=== PATIENT | male | born 1980 | race Caucasian/White ===

== ENCOUNTER 2018-04-12 07:44 | Emergency (ER) | payer BC ==
[2018-04-12] MEDS ORDERED: NS 0.9% 1000 ML* 1,000 ML IV ONE ×2 (07:54→09:01)
[2018-04-12] MEDS ORDERED: Ondansetron INJ* 2 MG/ML VIAL IV ONE (07:54)
[2018-04-12] MEDS ORDERED: Ketorolac INJ* 30 MG/ML 1 ML VIAL IV PUSH ONE (07:55)
--- NOTE | 2018-04-12 08:03 | ED ---
Abdominal Pain/Male - HPI Summary HPI Summary: This patient is a 37 year old M presenting to [facility] accompanied by his with a chief complaint of persistent vomiting on 04-08-18. The patient rates the pain 5/10 in severity. Symptoms alleviated by Zofran given by CC. Patient reports diarrhea, intermittent periumbilical pain, nausea, and loss of appetite. Patient denies blood in stool, mucus in stool, and recent camping. Pt recently had a colonoscopy and upper endoscopy which showed polyps. Pt was seen at [facility] a few days ago but has not improved since then. - History of Current Complaint Chief Complaint: EDAbdPain Stated Complaint: VOMITING Time Seen by Provider: 04/12/18 07:52 Hx Obtained From: Patient Onset/Duration: Lasting Days, Still Present Timing: Constant Severity Initially: Mild Severity Currently: Mild Pain Intensity: 3 Pain Scale Used: 0-10 Numeric Location: Umbilical Radiates: No Alleviating Factor(s): Other: - zofran Associated Signs And Symptoms: Positive: Decreased Appetite, Nausea, Vomiting, Diarrhea. Negative: Blood in Stool - Allergies/Home Medications Allergies/Adverse Reactions: Allergies Allergy/AdvReac Type Severity Reaction Status Date / Time No Known Allergies Allergy Verified 04/12/18 07:50 Home Medications: Home Medications Pantoprazole TAB (NF) [Protonix TAB (NF)] 40 mg PO DAILY 04/12/18 [History Confirmed 04/12/18] PMH/Surg Hx/FS Hx/Imm Hx Endocrine/Hematology History: Denies: Hx Systemic Lupus Erythematosus, Hx Sickle Cell Disease Cardiovascular History: Denies: Hx Angioplasty, Hx Auto Implanted Cardiovert Defib, Hx Cardiomegaly, Hx Congenital Heart Disease, Hx Coronary Artery Disease Respiratory History: Denies: Hx Chronic Obstructive Pulmonary Disease (COPD), Hx Cystic Fibrosis, Hx Pulmonary Edema, Hx Pulmonary Embolism GI History: Reports: Hx Gastroesophageal Reflux Disease Infectious Disease History: No Infectious Disease History: Denies: Traveled Outside the [place] in Last 30 Days - Family History Known Family History: Negative: Respiratory Disease, Seizure Disorder, Blood Disorder - Social History Lives: With Family Alcohol Use: Occasionally Hx Substance Use: No Substance Use Type: Reports: None Hx Tobacco Use: No Smoking Status (MU): Never Smoked Tobacco Review of Systems Negative: Fever Positive: Abdominal Pain, Vomiting, Diarrhea, Nausea, Other - loss of appetite All Other Systems Reviewed And Are Negative: Yes Physical Exam - Summary Physical Exam Summary: Appearance: Well appearing, no pain distress Skin: warm, dry, reflects adequate perfusion Head/face: normal Eyes: EOMI, PENNY ENT: normal Neck: supple, non-tender Respiratory: CTA, breath sounds present Cardiovascular: RRR, pulses symmetrical Abdomen: non-tender, soft, RLQ is non tender, there is no distension Bowel Sounds: increased bowel sound with high pitch Musculoskeletal: normal, strength/ROM intact Neuro: normal, sensory motor intact, A&Ox3 Triage Information Reviewed: Yes Vital Signs On Initial Exam: Initial Vitals Temp Pulse Resp BP Pulse Ox 97.0 F 80 16 150/90 98 04/12/18 07:47 04/12/18 07:47 04/12/18 07:47 04/12/18 07:47 04/12/18 07:47 Vital Signs Reviewed: Yes Diagnostics - Vital Signs Vital Signs Temp Pulse Resp BP Pulse Ox 04/12/18 07:47 97.0 F 80 16 150/90 98 - Laboratory Result Diagrams: 04/12/18 08:46 04/12/18 08:46 Lab Statement: Any lab studies that have been ordered have been reviewed, and results considered in the medical decision making process. Re-Evaluation - Re-Evaluation First Eval Change: Improved Abdominal Pain Fem Course/Dx - Course Course Of Treatment: Patient with largely diarrheal illness. No significant tenderness on exam. CRP is elevated and potassium is low. This was replaced along with magnesium. He received 2 L of IV fluids and is feeling much better. He did provide a stool sample which was sent for testing, culture etc. Likely viral in nature. No blood or mucus in the stools. No known sick contacts or travel/camping. - Diagnoses Differential Diagnosis/HQI/PQRI: Appendicitis, Bowel Obstruction, Gall Bladder Disease, Pancreatitis, Other - Gastroenteritis Provider Diagnoses: Gastroenteritis, Hypokalemia Discharge - Sign-Out/Discharge Documenting (check all that apply): Patient Departure - Discharge Plan Condition: Improved Disposition: HOME Prescriptions: Diphenoxylat/Atrop 2.5-0.025M* [Lomotil TAB*] 1 tab PO QID PRN #15 tab MDD 4 PRN Reason: Diarrhea Hyoscyamine Sulfate [Levsin/Sl] 0.125 mg SL QID PRN #30 sub PRN Reason: cramping Patient Education Materials: Gastroenteritis (ED) Forms: *Work Release Referrals: Jo-Ann Nieto, HEMATOLOGY SUPERVISOR [Primary Care Provider] - Additional Instructions: Drink plenty of fluids. Gatorade G2 or propel water may help best. Return with fever, increased abdominal pain, worse, new symptoms or other concerns as discussed. This is contagious as long as you have loose stools. - Billing Disposition and Condition Condition: IMPROVED Disposition: Home - Attestation Statements Document Initiated by Edel: Yes Documenting Scribe: Saji Farrell Provider For Whom Edel is Documenting (Include Credential): Graeme Thomas MD Scribe Attestation: Saji Pepe , scribed for Graeme Thomas MD on 04/12/18 at 1037. Scribe Documentation Reviewed: Yes Provider Attestation: The documentation as recorded by the Saji angel accurately reflects the service I personally performed and the decisions made by me, Graeme Thomas MD
[2018-04-12 09:07] LABS: ABS Basophils 0 10^3/ul (0-0.2); ABS Eosinophils 0.2 10^3/ul (0-0.6); ABS Lymphocytes 1.3 10^3/ul (1.0-4.8); ABS Monocytes 1.6 10^3/ul (0-0.8); ABS Neutrophils 4.2 10^3/ul (1.5-7.7); ABS Nucleated RBC 0 10^3/ul; Eosinophil % 2.2 % (0-6); Hematocrit 46 % (42-52); Hemoglobin 16.5 g/dl (14.0-18.0); Lymphocyte % 17.4 % (25-47); Mean Corpuscular HGB Conc 36 g/dl (31-36); Mean Corpuscular Hemoglobin 32 pg (27-31); Mean Corpuscular Volume 87 fL (80-94); Mean Platelet Volume 6.6 um3 (7.4-10.4); Nucleated Red Blood Cells % 0; Platelet Count 202 10^3/ul (150-450); Red Blood Count 5.23 10^6/ul (4.00-5.40); Red Cell Distribution Width 14 % (10.5-15); White Blood Count 7.3 10^3/ul (3.5-10.8)
[2018-04-12 09:18] LABS: EGFR Non-African American 97.4 (>60)
[2018-04-12 09:33] LABS: Urine Appearance Clear; Urine Blood Negative (Negative); Urine Color Amber; Urine Ketones 1+ (Negative); Urine Protein 1+(30 mg/dL) (Negative); Urine Red Blood Cell Absent (Absent); Urine Specific Gravity 1.026 (1.010-1.030); Urine Urobilinogen Negative (Negative); Urine White Blood Cell Absent (Absent)
[2018-04-12 10:14] VITALS: BP 136/82
[2018-04-12] MEDS ORDERED: Potassium Chlor TAB* 20 MEQ TAB.ER PO ONE (10:27)
[2018-04-12] MEDS ORDERED: Magnesium Oxide TAB* 400 MG PO ONE (10:27)
== END 2018-04-12 10:38 | disposition home or self-care (01) ==
LOC: ED 07:44
DX: K52.9 Noninfective gastroenteritis and colitis, unspecified (principal); E87.6 Hypokalemia; R11.2 Nausea with vomiting, unspecified; R19.7 Diarrhea, unspecified; R10.9 Unspecified abdominal pain
CPT/HCPCS: 36415; 80053; 81003; 81015; 83605; 83630; 83690; 85025; 86140; 87045; 87046; 87328; 87329; 87493; 87899; 96374; 96375; 99283; A9270-GY; J1885; J2405

== ENCOUNTER 2018-04-13 13:55 | Observation (INO) | payer BC ==
[2018-04-13] MEDS ORDERED: NS 0.9% 1000 ML* 1,000 ML IV ONE ×2 (14:04→14:05)
[2018-04-13 14:50] LABS: ABS Basophils 0 10^3/ul (0-0.2); ABS Eosinophils 0.2 10^3/ul (0-0.6); ABS Lymphocytes 1.8 10^3/ul (1.0-4.8); ABS Monocytes 1.6 10^3/ul (0-0.8); ABS Neutrophils 7.1 10^3/ul (1.5-7.7); ABS Nucleated RBC 0 10^3/ul; Eosinophil % 1.8 % (0-6); Hematocrit 50 % (42-52); INR 0.92 (0.77-1.02); Lymphocyte % 16.9 % (25-47); Mean Corpuscular HGB Conc 36 g/dl (31-36); Mean Corpuscular Hemoglobin 31 pg (27-31); Mean Corpuscular Volume 87 fL (80-94); Nucleated Red Blood Cells % 0.1; Platelet Count 233 10^3/ul (150-450); Red Blood Count 5.74 10^6/ul (4.00-5.40); Red Cell Distribution Width 14 % (10.5-15); White Blood Count 10.7 10^3/ul (3.5-10.8)
[2018-04-13 15:02] LABS: EGFR Non-African American 84.1 (>60)
[2018-04-13] MEDS ORDERED: Magnesium Sulfate 1 GM IV* 1 GM/100 ML BAG IV ONE (15:59)
[2018-04-13] MEDS: KCL 20 MEQ/100 ML IVPREMIX* 20 MEQ/100 ML BAG IV SCH ×2 (16:01→18:45)
[2018-04-13] MEDS ORDERED: Acetaminophen TAB* 325 MG PO PRN (16:45)
[2018-04-13] MEDS ORDERED: Ondansetron INJ* 2 MG/ML VIAL IV PRN (16:46)
[2018-04-13] MEDS ORDERED: Loperamide CAP* 2 MG PO ONE (16:56)
[2018-04-13] MEDS ORDERED: Loperamide CAP* 2 MG PO PRN (16:56)
--- NOTE | 2018-04-13 17:23 | ED ---
Abdominal Pain/Male - HPI Summary HPI Summary: Patient is a 37 y/o M w/ c/o N/V/D, abdominal pain. He was seen at [facility] [place]. A stool sample and urine sample were taken, patient states he was told that he had a stomach flu and was discharged to home. Patient still reports the presence of Sx and states he feels, "awful". He denies chest pain, fevers, and SOB. Patient reports blood in stool, light-headedness and tiredness while standing. On triage, pain is rated 2/10, nothing is noted to aggravate/ alleviate Sx. Home medications and allergies are reviewed. 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 Before entering room to talk to patient, labs returned showing patient is positive for cryptosporidium. - History of Current Complaint Chief Complaint: EDGIBleed Stated Complaint: BLOOD IN STOOL Time Seen by Provider: 04/13/18 14:05 Hx Obtained From: Patient Onset/Duration: Still Present Timing: Constant Severity Currently: Mild - 2/10 Pain Intensity: 2 Pain Scale Used: 0-10 Numeric - 2/10 Aggravating Factor(s): Nothing Alleviating Factor(s): Nothing Associated Signs And Symptoms: Positive: Blood in Stool, Nausea, Vomiting, Diarrhea, Other - POSITIVE: tiredness and lightheaded while standing. Negative : Fever, Chest Pain - Allergies/Home Medications Allergies/Adverse Reactions: Allergies Allergy/AdvReac Type Severity Reaction Status Date / Time No Known Allergies Allergy Verified 04/13/18 15:38 PMH/Surg Hx/FS Hx/Imm Hx Endocrine/Hematology History: Denies: Hx Systemic Lupus Erythematosus, Hx Sickle Cell Disease Cardiovascular History: Denies: Hx Angioplasty, Hx Auto Implanted Cardiovert Defib, Hx Cardiomegaly, Hx Congenital Heart Disease, Hx Coronary Artery Disease Respiratory History: Denies: Hx Chronic Obstructive Pulmonary Disease (COPD), Hx Cystic Fibrosis, Hx Pulmonary Edema, Hx Pulmonary Embolism GI History: Reports: Hx Gastroesophageal Reflux Disease - Immunization History Immunizations Up to Date: Yes Infectious Disease History: No Infectious Disease History: Denies: Traveled Outside the [place] in Last 30 Days - Family History Known Family History: Negative: Respiratory Disease, Seizure Disorder, Blood Disorder - Social History Alcohol Use: Occasionally Hx Substance Use: No Substance Use Type: Reports: Marijuana Hx Tobacco Use: No Smoking Status (MU): Never Smoked Tobacco Review of Systems Positive: Fatigue - tiredness while standing . Negative: Fever Negative: Chest Pain Negative: Shortness Of Breath Positive: Abdominal Pain, Vomiting, Diarrhea, Nausea Positive: other - POSITIVE: blood in stool Neurological: Other - lightheadedness while standing All Other Systems Reviewed And Are Negative: Yes Physical Exam - Summary Physical Exam Summary: Appearance: Well appearing, no pain distress Skin: warm, dry, reflects adequate perfusion Head/face: normal Eyes: EOMI, PENNY ENT: mucous membranes are tacky Neck: supple, non-tender Respiratory: CTA, breath sounds present Cardiovascular: RRR, pulses symmetrical Abdomen: non-tender, soft Bowel Sounds: decreased but present Musculoskeletal: normal, strength/ROM intact Neuro: normal, sensory motor intact, A&Ox3 Triage Information Reviewed: Yes Vital Signs On Initial Exam: Initial Vitals Temp Pulse Resp BP Pulse Ox 96.8 F 96 16 140/90 97 04/13/18 13:56 04/13/18 13:56 04/13/18 13:56 04/13/18 13:56 04/13/18 13:56 Vital Signs Reviewed: Yes Diagnostics - Vital Signs Vital Signs Temp Pulse Resp BP Pulse Ox 04/13/18 16:48 83 10 143/80 99 04/13/18 16:19 84 19 142/95 99 04/13/18 15:49 80 21 138/93 98 04/13/18 15:19 91 12 151/99 99 04/13/18 13:56 96.8 F 96 16 140/90 97 - Laboratory Lab Results: Lab Results 04/13/18 04/13/18 04/13/18 Range/Units 14:10 14:10 14:10 WBC 10.7 (3.5-10.8) 10^3/ul RBC 5.74 H (4.00-5.40) 10^6/ul Hgb 18.0 (14.0-18.0) g/dl Hct 50 (42-52) % MCV 87 (80-94) fL MCH 31 (27-31) pg MCHC 36 (31-36) g/dl RDW 14 (10.5-15) % Plt Count 233 (150-450) 10^3/ul MPV 7.0 L (7.4-10.4) um3 Neut % (Auto) 66.2 (38-83) % Lymph % (Auto) 16.9 L (25-47) % [place] % (Auto) 14.7 H (0-7) % Eos % (Auto) 1.8 (0-6) % Baso % (Auto) 0.4 (0-2) % Absolute Neuts (auto) 7.1 (1.5-7.7) 10^3/ul Absolute Lymphs (auto) 1.8 (1.0-4.8) 10^3/ul Absolute Monos (auto) 1.6 H (0-0.8) 10^3/ul Absolute Eos (auto) 0.2 (0-0.6) 10^3/ul Absolute Basos (auto) 0 (0-0.2) 10^3/ul Absolute Nucleated RBC 0 10^3/ul Nucleated RBC % 0.1 INR (Anticoag Therapy) 0.92 (0.77-1.02) APTT 30.4 (26.0-36.3) seconds Sodium 129 L (135-145) mmol/L Potassium 2.9 L (3.5-5.0) mmol/L Chloride 99 L (101-111) mmol/L Carbon Dioxide 20 L (22-32) mmol/L Anion Gap 10 (2-11) mmol/L BUN 9 (6-24) mg/dL Creatinine 1.00 (0.67-1.17) mg/dL Est GFR ( Amer) 101.7 (>60) Est GFR (Non-Af Amer) 84.1 (>60) BUN/Creatinine Ratio 9.0 (8-20) Glucose 107 H (70-100) mg/dL Calcium 9.1 (8.6-10.3) mg/dL Magnesium Pending Total Bilirubin 0.70 (0.2-1.0) mg/dL AST 22 (13-39) U/L ALT 27 (7-52) U/L Alkaline Phosphatase 47 (34-104) U/L Total Protein 7.3 (6.4-8.9) g/dL Albumin 4.3 (3.2-5.2) g/dL Globulin 3.0 (2-4) g/dL Albumin/Globulin Ratio 1.4 (1-3) Result Diagrams: 04/13/18 14:10 04/13/18 14:10 Lab Statement: Any lab studies that have been ordered have been reviewed, and results considered in the medical decision making process. Abdominal Pain Fem Course/Dx - Course Course Of Treatment: Patient tested positive for cryptosporidium after stool testing yesterday. He presents ill-appearing with complaint of blood in the stools. He is likely experiencing some dysentery related to the infectious diarrhea. Potassium here was replaced as was magnesium. He was given 2 L of IV fluids. He will require hospital admission. Hospitalist contacted and will evaluate the bedside. Contact precautions. - Diagnoses Differential Diagnosis/HQI/PQRI: Other - Dysentery, hypokalemia, hypomagnesemia , dehydration Provider Diagnoses: Infection due to cryptosporidium, Hypokalemia due to loss of potassium, Dehydration - Provider Notifications Discussed Care Of Patient With: Mitzy Cortez Time Discussed With Above Provider: 16:39 Instructed by Provider To: Other - Dr. Cortez was consulted on patient's case at 16:39. Dr. Cortez agrees to accept patient for admission to [facility]. Discharge - Sign-Out/Discharge Documenting (check all that apply): Patient Departure - admit - Discharge Plan Condition: Fair Disposition: ADMITTED TO [facility] - Billing Disposition and Condition Condition: FAIR Disposition: Admitted to [facility] - Attestation Statements Document Initiated by Scribe: Yes Documenting Scribe: Kavin Rosa Provider For Whom Tomasae is Documenting (Include Credential): Graeme Thomas MD Scribe Attestation: Kavin Pepe, scribed for Graeme Thomas MD on 04/13/18 at 1748. Scribe Documentation Reviewed: Yes Provider Attestation: The documentation as recorded by the scribKavin [email or web address] accurately reflects the service I personally performed and the decisions made by me, Graeme Thomas MD
[2018-04-13] MEDS ORDERED: Pantoprazole IV* 40 MG IV SCH (18:00)
[2018-04-13] MEDS: Sulfamethox/Trimethoprim DS 800/160* TAB PO SCH ×2 (18:45→22:47)
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
[2018-04-13] MEDS: NS 0.9% 1000 ML* 1,000 ML IV SCH (22:48)
[2018-04-14] MEDS: NS 0.9% 1000 ML* 1,000 ML IV SCH ×2 (01:53→08:15)
[2018-04-14 06:49] LABS: ABS Basophils 0 10^3/ul (0-0.2); ABS Eosinophils 0.2 10^3/ul (0-0.6); ABS Lymphocytes 1.7 10^3/ul (1.0-4.8); ABS Monocytes 1.5 10^3/ul (0-0.8); ABS Neutrophils 7.5 10^3/ul (1.5-7.7); ABS Nucleated RBC 0 10^3/ul; Eosinophil % 1.7 % (0-6); Hematocrit 42 % (42-52); Hemoglobin 15.2 g/dl (14.0-18.0); Lymphocyte % 15.3 % (25-47); Mean Corpuscular HGB Conc 36 g/dl (31-36); Mean Corpuscular Hemoglobin 31 pg (27-31); Mean Corpuscular Volume 87 fL (80-94); Mean Platelet Volume 6.8 um3 (7.4-10.4); Nucleated Red Blood Cells % 0.1; Platelet Count 225 10^3/ul (150-450); Red Blood Count 4.86 10^6/ul (4.00-5.40); Red Cell Distribution Width 14 % (10.5-15); White Blood Count 10.8 10^3/ul (3.5-10.8)
[2018-04-14 06:53] LABS: EGFR Non-African American 101.4 (>60)
[2018-04-14] MEDS: Sulfamethox/Trimethoprim DS 800/160* TAB PO SCH (08:00)
[2018-04-14 17:13] VITALS: BP 141/74
--- NOTE | 2018-04-14 23:03 | DS ---
CC: Jo-Ann Nieto NP DISCHARGE SUMMARY: DATE OF ADMISSION: DATE OF DISCHARGE: 04/14/18 HISTORY: This 37-year-old man presented with 5 days of nausea, vomiting and diarrhea. His stool culture grew out Cryptosporidium. He was seen once in the emergency room and given IV fluids and electrolytes and retuned home. Initially , he felt better, but then developed very large amounts of diarrhea and more vomiting. He last vomited I believe in the afternoon of admission in the emergency room. He was given 2 doses of Bactrim DS on 04/13/18 and the next morning, he felt much better. He said he had 3 loose bowel movements or diarrhea since midnight , which is much improved since yesterday. He was able to eat an adequate amount of clear liquid diet. I discussed management of diarrheal illness at home with the patient and his . I am sure he will be quite able to replace any fluid losses from diarrhea with oral intake. He will advance his diet slowly. He will take 6 more days of Bactrim DS 1 b.i.d. He will be off work until 04/18/18. FINAL DIAGNOSES: 1. Cryptosporidium infection. 2. Gastroesophageal reflux disease. DISCHARGE MEDICATIONS: 1. Sulfamethoxazole-trimethoprim DS 1 tab b.i.d. for 6 days. 2. Pantoprazole 40 mg daily. DISCHARGE CONDITION: good DISCHARGE DISPOSITION: home [id number]/[facility] #: [id number] MTDD
== END 2018-04-14 13:00 | disposition home or self-care (01) ==
LOC: ED 13:55 → MED 16:39
PROVIDERS: ADMIT Internal Medicine; ATTEND Internal Medicine
DX: A07.2 Cryptosporidiosis (principal); K21.9 Gastro-esophageal reflux disease without esophagitis; E87.8 Other disorders of electrolyte and fluid balance, not elsewhere classified; E86.0 Dehydration; Z79.899 Other long term (current) drug therapy; Z86.010 Personal history of colon polyps; R10.9 Unspecified abdominal pain
CPT/HCPCS: 36415; 80048; 80053; 83735; 85025; 85610; 85730; 86703; 96361; 96365; 96366; 96367; 96375; 99283; A9270-GY; G0378; J2405; J3475; J3480